=== PATIENT | male | born 2005 | race Caucasian/White ===

== ENCOUNTER 2025-05-12 10:02 | Emergency (ER) | payer BC, MEDICAID, OTHER ==
[2025-05-12] MEDS: Diphtheria,Pertussis(Acell),Tetanus Vaccine 0.5 ML Syringe IM ONE (11:07)
== END 2025-05-12 12:04 | disposition home or self-care (01) ==
LOC: MW.ED 10:02
DX: S61.102A Unspecified open wound of left thumb with damage to nail, initial encounter (principal); Z79.899 Other long term (current) drug therapy; Z75.3 Unavailability and inaccessibility of health-care facilities; Z23 Encounter for immunization; W26.8XXA Contact with other sharp object(s), not elsewhere classified, initial encounter; Y93.89 Activity, other specified
CPT/HCPCS: 90471; 90715; 99282; A9270; 99283